=== PATIENT | female | born 1980 | race Two or more races ===

== ENCOUNTER 2021-02-27 18:17 | Emergency (ER) | payer OTHER ==
[~2021-02-27] VITALS: Ht 165.1 cm; Wt 65.3 kg
[2021-02-27] MEDS ORDERED: INDERAL LA80 MG PO (19:02)
[2021-02-27] MEDS ORDERED: CARAFATE1 GM PO (21:17)
[2021-02-27] MEDS ORDERED: PEPCID AC20 MG PO (21:17)
[2021-02-27] MEDS ORDERED: LEVSIN/SL0.125 MG SL (21:17)
== END 2021-02-27 21:25 | disposition home or self-care (01) ==
LOC: ER 18:17
DX: K29.60 Other gastritis without bleeding (principal)

== ENCOUNTER → 2021-03-01 | Emergency (ER) | payer OTHER ==
[~2021-03-01] VITALS: Ht 165.1 cm; Wt 65.3 kg
[~2021-03-01] MED LIST: CARAFATE1 GM PO; INDERAL LA80 MG PO; LEVSIN/SL0.125 MG SL; PEPCID AC20 MG PO
== END | disposition home or self-care (01) ==
LOC: ER 13:03
DX: K29.60 Other gastritis without bleeding (principal); E86.0 Dehydration; Z03.818 Encounter for observation for suspected exposure to other biological agents ruled out